=== PATIENT | male | born 1965 | race Caucasian/White ===

== ENCOUNTER 2019-11-03 14:43 | Emergency (ER) | payer SELFPAY ==
--- NOTE | 2019-11-03 15:52 | RAD REPORT ---
EXAM DESCRIPTION: RAD - Chest Pa And Lat (2 Views) - 11/03/2019 3:33 pm CLINICAL HISTORY: flu Chest pain. COMPARISON: No comparisons FINDINGS: Mild reticular opacities are present likely representing viral pneumonitis or bronchitis. No focal consolidation typical of pneumonia evident. The heart is normal in size. No displaced fractu res.
[2019-11-03 16:29] LABS: Albumin 2.9 g/dL (3.4-5.0); Bilirubin Total 0.4 mg/dL (0.2-1.0); Potassium 3.9 mmol/L (3.5-5.1); Protein, Total 6.8 g/dL (6.4-8.2)
[2019-11-03 16:33] LABS: Absolute Lymphocytes (CBC) 0.4 K/uL (0.7-4.9); Basophils % 0.4 % (0-1.3); Lymphocytes % 12.5 % (15.3-44.8); MPV 9.8 fL (7.6-11.3); RBC Red Blood Cell Count 5.03 M/uL (4.33-5.43)
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
[2019-11-03] MEDS ORDERED: IBUPROFEN 200 MG TAB PO ONE (17:20)
[2019-11-03] MEDS ORDERED: IBUPROFEN 400 MG TAB ONE (17:20)
[2019-11-03 17:41] VITALS: BP 124/78; TEMP 102.1; O2SAT 100
== END 2019-11-03 17:31 | disposition home or self-care (01) ==
LOC: ER 14:43
DX: J40 Bronchitis, not specified as acute or chronic (principal); R19.7 Diarrhea, unspecified
CPT/HCPCS: 36415; 71046; 80053; 85025; 87070; 87081; 87804; 99284